=== PATIENT | female | born 1980 | race Caucasian/White ===

== ENCOUNTER → 2017-08-23 | Outpatient (CLI) | payer MEDICAID ==
[~2017-08-23] MED LIST: IOHEXOL 350 MG/ML 100 ML (OMNIPAQUE 350) VIAL IV ONE; NS 250 ML (IVPB) BAG IV ONE
--- NOTE | 2017-08-23 09:39 | Diagnostic Imaging Report ---
PROCEDURE: CT chest, abdomen, and pelvis with contrast. TECHNIQUE: Multiple contiguous axial images were obtained through the chest, abdomen, and pelvis after the administration of intravenous contrast. DATE: August 23, 2017. COMPARISON: None. INDICATION: 37-year-old female, lump in the left supraclavicular region. FINDINGS: There is no identified supraclavicular lymph node within the [id number] of imaging. There is no identified mass in the left or right supraclavicular regions or within the additional visualized portions of the lower neck. There is no identified pulmonary nodule or lung mass. There is no focal airspace consolidation. The central airways are patent. There is no pneumothorax. There is no pleural effusion. The heart is normal in size. There is no pericardial effusion. There is no identified abnormally enlarged mediastinal, hilar or, axillary lymph node which meets CT size criteria for adenopathy. The liver is normal in size and contour. There is no identified liver lesion. The main, right, and left portal veins are patent. The patient is status post cholecystectomy. There is no intrahepatic or extrahepatic bile duct dilation. The main pancreatic duct is not abnormally dilated. Unremarkable appearance of the pancreatic parenchyma. The spleen is normal in size. The adrenal glands are unremarkable. Unremarkable appearance of the renal parenchyma. The urinary collecting systems are not distended. There is no identified renal or ureteral stone. The urinary bladder is grossly unremarkable in appearance. There is low attenuation within the central uterus likely reflecting fluid within the endometrial canal. There is a low-attenuation right adnexal mass on axial image 111 measuring 2.4 x 1.8 cm in size which may reflect an ovarian cyst, although is not particularly well characterized on CT. The intestinal tract is not distended. The appendix is well identified on axial image 94 and adjacent sequential images. There is no evidence of acute appendicitis. There is no free intraperitoneal air. There is no drainable fluid collection. There is no sizable volume free pelvic fluid. There is no identified abnormally enlarged lymph node within the abdomen or pelvis which meets CT size criteria for adenopathy. There are multilevel mild disc degenerative changes of the spine. There is no identified acute bony abnormality. IMPRESSION: CT CHEST, ABDOMEN AND PELVIS. 1. No identified supraclavicular mass or adenopathy. 2. No evidence of malignancy or an acute process within the chest, abdomen, or pelvis. 3. Small amount of free pelvic fluid and probable right ovarian cyst measuring 2.4 x 1.8 cm in size. Dictated by: Dictated on workstation # [id number]
== END ==
LOC: RAD 08:52
PROVIDERS: ATTEND Nurse Practitioner Primary Care
DX: R59.0 Localized enlarged lymph nodes (principal)
CPT/HCPCS: 71260; 74177